=== PATIENT | male | born 1945 | race Caucasian/White ===

== ENCOUNTER 2023-05-07 10:18 | Emergency (ER) | payer MEDICARE ==
[~2023-05-07] VITALS: Ht 177.8 cm; Wt 81.8 kg
[~2023-05-07 10:18] MED LIST: ALLO100T PO; ASPI-41 PO; DOCU100C40 PO; HYDR-3972 PO; Hydrocodone Bit/Acetaminophen PO; LEVO75TA PO; LOP25T PO; OMEP20TA43 PO; SIMV-45 PO
[2023-05-07 10:21] VITALS: TEMP 98.6
[2023-05-07 11:14] VITALS: BP 158/88; PULSE 60; RESP 17; O2SAT 97
== END 2023-05-07 11:13 | disposition home or self-care (01) ==
LOC: ER 10:18
DX: I10 Essential (primary) hypertension (principal)
CPT/HCPCS: 99281